=== PATIENT | male | born 1990 | race Two or more races ===

== ENCOUNTER 2024-03-17 23:37 | Emergency (ER) | payer BC, SELFPAY ==
[2024-03-17 23:38] VITALS: BP 190/112
[2024-03-18 00:41] VITALS: BMI 29.3
[2024-03-18 00:44] VITALS: BP 162/113
[2024-03-18 00:45] VITALS: BP 162/113
[2024-03-18 01:10] LABS: % Basophils 1.1 % (0-2); % Eosinophils 2.4 % (0-6); % Immature Granulocytes 0.6 % (0-0.5); % Lymphocytes 22.4 % (20.5-51.1); % Monocytes 6.6 % (1.7-9.3); % Neutrophils 66.9 % (42.2-75.2); Absolute Basophils 0.1 10^3/uL (0-0.2); Absolute Eosinophils 0.2 10^3/uL (0-0.7); Absolute Lymphocytes 1.4 10^3/uL (1.2-3.4); Absolute Monocytes 0.4 10^3/uL (0.1-0.6); Absolute Neutrophils 4.3 10^3/uL (1.4-6.5); Hematocrit 41.2 % (39.0-52.0); Hemoglobin 14.4 g/dL (13.0-18.0); Mean Corpuscular Hgb 31.8 pg (27.0-31.0); Mean Corpuscular Volume 90.9 fL (80.0-94.0); Nucleated Red Blood Cells % 0 % (-); Platelet Count 211 10^3/uL (130-400); Red Blood Cell Count 4.53 10^6/uL (4.70-6.10); Red Cell Dist. Width 12.4 % (11.5-14.5); White Blood Cell Count 6.4 10^3/uL (4.8-10.8)
[2024-03-18 01:34] LABS: ALT (SGPT) 193 U/L (0-50); AST (SGOT) 175 U/L (17-59); Albumin 4.7 g/dl (3.5-5.0); Alcohol 261 mg/dl; Alkaline Phosphatase 92 U/L (38-126); Blood Urea Nitrogen 7 mg/dl (9-20); Carbon Dioxide 23 mmol/L (22-30); Chloride 103 mmol/L (98-107); Estimated Creatinine Clearance > 125 ml/min; Glucose 94 mg/dl (70-99); Potassium 4.3 mmol/L (3.5-5.1); Sodium 142 mmol/L (135-145); Total Bilirubin 0.3 mg/dl (0.2-1.3); Total Protein 7.2 g/dl (6.3-8.2); eGFR > 60.00
[2024-03-18 01:37] VITALS: BP 163/102
[2024-03-18 02:00] VITALS: BP 159/117
--- NOTE | 2024-03-18 02:09 | ED.GENMED ---
History of Present Illness
General
Chief Complaint: Alcohol Problem
Source: patient and family (Father and mother at bedside)
Exam Limitations: none
Time Seen by Provider: 03/18/24 01:30
Nursing documentation reviewed up to this point in time: agreed with
History of Present Illness
History of Present Illness:
This is a 33-year-old gentleman who has history of hypertension, alcohol abuse. Admits to drinking 4 to 5 glasses of wine per day. He works full-time at a pharmacy. He denies missing work. Denies drug use. His only daily medication is losartan.
His father was visiting him today and father was concerned when he found his son quite inebriated at 10 AM.
After lengthy discussion with his parents he admits to daily alcohol use and with this admission, he is eager to initiate alcohol treatment program.
His last alcohol rehab was around 2014 when he entered outpatient counseling through .
He denies feeling shaky, no prior history of alcohol withdrawal seizures nor significant alcohol withdrawal issues, he denies nausea nor vomiting. No recent falls.
Past History
Past History
ED Past Medical History: HTN and Other (Alcohol abuse)
ED Past Surgical History: None
Social History
Tobacco: Non-smoker
Alcohol: Daily
Drug: None
Personal: Single
Living: alone
Employment: Employed (Works full-time at a pharmacy)
Family History
Family History: Other (Noncontributory)
Phy Exam
Physical Exam
Physical Exam:
GENERAL: 33-year-old gentleman appears his stated age, bright and alert, pleasant, appears in no acute distress. Both parents are accompanying.
EYE: pupils equal and reactive. anicteric
NECK: Supple, nontender, no meningismus, no significant adenopathy.
ENT: oral mucosa is moist. No rhinorrhea.
CARDIAC: Regular rate and rhythm. no murmur.
LUNGS: Clear breath sounds bilaterally, no acute respiratory distress, no wheezes/rales/rhonchi
ABDOMEN: Soft, nondistended, without focal tenderness
NEUROLOGICAL: Alert and oriented x3, no focal neuro deficits. Gait is bazzi and steady.
SKIN: Warm and dry, normal color, skin intact. No rash.
MUSCULOSKELETAL: No C/C/E. peripheral pulses are full and equal b/l. No palpable tenderness.
PSYCH: Normal and appropriate interaction.
Scores
Withdrawal Assessment of Alcohol
Withdrawal Assessment Completed?: Yes
Nausea and Vomiting: No nausea and no vomiting
Tactile Disturbances: None
Tremor: No tremor
Auditory Disturbances: Not present
Paroxysmal Sweats: No sweat visible
Visual Disturbances: Not present
Anxiety: No anxiety, at ease
Headache, Fullness in Head: Not present
Agitation: Normal activity
Orientation and clouding of sensorium: Oriented and can do serial additions
Total CIWA Score: 0
Alcohol Withdrawal Medication Recommendation: Equal to MSAS Score 0-4. Monitor & re-assess q2hrs, NO MEDICATION NEEDED
Course
Orders/Labs/Results
Orders:
Orders
03/18/24 00:55
Alcohol Urgent
CMP [Comprehensive Metabolic Panel] Urgent
Complete Blood Count/With Diff Urgent
03/18/24 01:00
Add On- LAB Urgent
Comments:: serum alcohol
Tests Added?: serum alcohol
Abnormal Lab Results
03/18/24
00:55
RBC 4.53 L 10^6/uL
(4.70-6.10)
MCH 31.8 H pg
(27.0-31.0)
Immature Gran % 0.6 H %
(0-0.5)
BUN 7 L mg/dl
(9-20)
AST 175 H U/L
(17-59)
ALT 193 H U/L
(0-50)
03/18/24 00:55
03/18/24 00:55
Vital Signs
Initial and Last Documented VS:
Initial Vital Signs
Temp Pulse Resp BP Pulse Ox
97.8 F 118 20 190/112 98
03/17/24 23:38 03/17/24 23:38 03/17/24 23:38 03/17/24 23:38 03/17/24 23:38
Last Documented Vital Signs
Temp Pulse Resp BP Pulse Ox
98.5 F 112 18 137/106 97
03/18/24 00:45 03/18/24 02:17 03/18/24 02:17 03/18/24 02:17 03/18/24 02:17
MDM/Problems Addressed
Differential Diagnosis Includes:
Patient presents requesting assistance with alcohol rehabilitation.
Admits to daily alcohol consumption perhaps 4 to 5 glasses of wine per day but remains productive, working on a daily basis, denies missing work. Denies drug use.
Denies suicidal nor homicidal thoughts.
Denies alcohol withdrawal symptoms but will continue to monitor for such.
Routine labs are pending as well as EtOH.
Will consult [facility] acid recovery operator.
Will monitor for alcohol withdrawal symptoms.
Chronic conditions affecting care: HTN and Psychiatric illness (Alcohol abuse)
*Pulse Oximetry
Patient hypoxic: no
*Critical Care Note
Total Time (30-74mins, 75-104mins- exclusive of procedures): Not Applicable
Update Note
Update Note:
Patient has been evaluated by [facility] acid recovery operator.
He has been provided with information for outpatient resources for [facility].
[facility] acid recovery operator will follow-up with patient tomorrow as well as follow-up with patient's father.
Patient and parents feel comfortable with discharge to home with plan for for outpatient follow-up with [facility].
He continues to have no signs of alcohol withdrawal.
ED Attending Note
-
Portions of this chart may have been created with voice recognition software.� Occasional wrong word or��sound alike� substitutions may have occurred due to the inherent limitations of voice recognition software.
Discharge Plan
Departure
Patient Disposition: Home (Routine Discharge)
Date of Disposition: 03/18/24
Time of Disposition: 02:09
Patient with high blood pressure during this ER visit?: No
Condition: Good
Discharge Problem:
Alcohol abuse
Instructions: Alcohol Use Disorder (DC)
Prescriptions:
No Action
losartan 50 mg Tablet
50 mg PO DAILY
eszopiclone [Lunesta] 2 mg Tablet
2 mg PO HS PRN (Reason: sleep)
Referrals:
ZULEIKA MAXWELL, DO [Family Provider] - Call in 1-3 days for appt
Interventions
Interventions:
*Risk Screen - Suicide Last Done: 03/17/24 23:38
*General Assessment Last Done: 03/18/24 00:41
*Neglect/Abuse Screening Last Done: 03/17/24 23:38
*ED COVID-19 Vaccine History Last Done: 03/18/24 00:41
*Nursing Disposition Last Done: 03/18/24 02:24
ED- Neurological Assessment Last Done: 03/18/24 00:45
ED-Psychological Assessment Last Done: 03/18/24 00:45
Discharge Date and Time
Discharge Date/Time: 03/18/24 02:28
Print Language: SWEDISH
[2024-03-18 02:17] VITALS: BP 137/106
== END 2024-03-18 02:28 | disposition home or self-care (01) ==
LOC: EMR 23:37
PROVIDERS: EMERGENCY PHYSICIAN Emergency Medicine; FAMILY PHYSICIAN Family Medicine
DX: F10.10 Alcohol abuse, uncomplicated (principal); Y90.8 Blood alcohol level of 240 mg/100 ml or more; I10 Essential (primary) hypertension; Z79.899 Other long term (current) drug therapy
CPT/HCPCS: 99283; 80053; 82077; 85025